=== PATIENT | male | born 1985 | race Caucasian/White ===

== ENCOUNTER 2023-02-22 13:26 | Outpatient (CLI) | payer BC, SELFPAY | END 2023-02-22 13:27 | disposition home or self-care (01) | PROVIDERS: PCP Emergency Medicine; Visit Provider Emergency Medicine | DX: Z00.00 Encounter for general adult medical examination without abnormal findings (principal); R10.9 Unspecified abdominal pain; Z13.6 Encounter for screening for cardiovascular disorders | CPT/HCPCS: 80053; 83690; 87338 ==

== ENCOUNTER 2023-03-05 09:45 | Outpatient (CLI) | payer BC, SELFPAY | END 2023-03-05 09:46 | disposition home or self-care (01) | LOC: NFLDREF 03-07 09:03 | PROVIDERS: PCP Emergency Medicine; Referring Provider Emergency Medicine; Visit Provider Emergency Medicine | DX: E87.5 Hyperkalemia (principal); Z13.6 Encounter for screening for cardiovascular disorders | CPT/HCPCS: 80061; 84132 ==